=== PATIENT | male | born 1945 | race Caucasian/White ===

== ENCOUNTER 2016-09-02 15:49 | Emergency (ER) | payer OTHER ==
[~2016-09-02] VITALS: Ht 182.9 cm; Wt 110.0 kg
[~2016-09-02 15:49] MED LIST: CIPR500T4 PO; EQUATE ARTHRITIS PO; FISH1000 PO; GLYB5TAB3 PO; LANTUS2P SC; LISI-360 PO; MAGN420T PO; METF-324 PO; METO25 PO; MULT1TAB PO; NIAC500T5 PO; ST J81CH PO; TERA5CAP3 PO; ZOCO40TA PO
[2016-09-02 15:58] VITALS: BP 147/82; PULSE 70; RESP 16; TEMP 97.9; O2SAT 96
[2016-09-02] MEDS ORDERED: LISI10TA3 PO (16:18)
[2016-09-02] MEDS ORDERED: TERA5CAP3 PO (16:18)
[2016-09-02] MEDS ORDERED: METO25TA3 PO (16:18)
[2016-09-02] MEDS ORDERED: MULTTAB67 PO (16:18)
[2016-09-02] MEDS ORDERED: METF1000 PO (16:18)
[2016-09-02] MEDS ORDERED: ASPI81TA81 (16:18)
[2016-09-02] MEDS ORDERED: ZOCO40TA PO (16:18)
[2016-09-02] MEDS ORDERED: MAGN420T (16:18)
[2016-09-02] MEDS ORDERED: LANTUS2P (16:18)
[2016-09-02] MEDS ORDERED: GLYB5TAB3 PO (16:18)
--- NOTE | 2016-09-02 16:22 | PD ---
HPI Chief Complaint: Musculoskeletal Complaint Time Seen by Provider: 16:22 Travel History International Travel<30 days: No Contact w/Intl Traveler<30days: No Traveled to known affect area: No History of Present Illness HPI 71-year-old [id number] male with PMH of HTN, DM, and neurogenic bladder presents to the ED for evaluation of one week history of left-sided shoulder pain. Onset after lifting some packages overhead to store them in his shed. Worsened over the last 3 days. Described as throbbing, constant. Accompanied by occasional tingling of the arm that does not radiate into the fingers. He denies previous injury to the area. He denies numbness, weakness, limitations to range of motion of the arm. He denies cardiac history, palpitations, chest pain, diaphoresis, nausea, vomiting. Patient states that the pain keeps him from sleeping at night. He treated at home with heat packs with no improvement of symptoms. PFSH Past Medical History Arthritis: Yes (KNEES. ELBOWS) Autoimmune Disease: No Cancer: No Cardiovascular Problems: Yes High Cholesterol: Yes (CONTROLLED WITH MEDS) Chemotherapy: No Congestive Heart Failure: No Cerebrovascular Accident: No Diabetes: Yes (DIAG 1991) Patient Takes Glucophage: No Diminished Hearing: No Endocrine: Yes Gastrointestinal Disorders: No Genitourinary: Yes (neurogenic bladder, pt needs to do self-catherization) Hypertension: Yes (CONTROLLED WWITH MEDS) Immune Disorder: No Implanted Vascular Access Dvce: Yes Musculoskeletal: Yes Neurologic: Yes (neuropathy) Psychiatric: No Reproductive: No Respiratory: No Radiation Therapy: No Tetanus Vaccination: < 5 Years Influenza Vaccination: Yes Past Surgical History Abdominal Surgery: Yes (COLON RESECTION) Cardiac Surgery: No Eye Surgery: Yes (RIGHT CATARACT) Genitourinary Surgery: No Joint Replacement: Yes (RIGHT KNEE) Oral Surgery: Yes Other Surgery: Yes Social History Alcohol Use: Yes (3 TO 4 BEERS, TWICE WEEKLY) Tobacco Use: No Substance Use: No Allergies-Medications (Allergen,Severity, Reaction): Coded Allergies: No Known Allergies (Unverified , 09/02/16) Reported Meds & Prescriptions Reported Meds & Active Scripts Active Lortab (Hydrocodone-Acetaminophen) 5-325 Mg Tab 1 Tab PO HS PRN Naprosyn (Naproxen) 500 Mg Tab 500 Mg PO BID Reported Terazosin (Terazosin HCl) 5 Mg Cap 5 Mg PO HS Zocor (Simvastatin) 40 Mg Tab 40 Mg PO DAILY Multiple Vitamin 1 Tab 1 Tab PO DAILY Metoprolol Tartrate 25 Mg Tab 25 Mg PO BID Metformin (Metformin HCl) 1,000 Mg Tab 1,000 Mg PO BIDPC With meals Magnesium Oxide 420 Mg Tab Lisinopril 10 Mg Tab 10 Mg PO DAILY Lantus Inj (Insulin Glargine) 100 Unit/Ml Inj 30 Aspir-81 (Aspirin) 81 Mg Tabdr Glyburide 5 Mg Tab 10 Mg PO BID Take with meals at the same time each day Review of Systems Except as stated in HPI: all other systems reviewed are Neg Physical Exam Narrative GENERAL: Well-nourished, well-developed pleasant white male in no acute distress. SKIN: Warm and dry. No ecchymosis, abrasion or laceration of the left shoulder. HEAD: Normocephalic. EYES: No scleral icterus. No injection or drainage. NECK: Supple, trachea midline. No JVD or lymphadenopathy. CARDIOVASCULAR: Regular rate and rhythm without murmurs, gallops, or rubs. 2+ DP and radial pulses bilaterally. No tenderness to palpation over the precordium. RESPIRATORY: Breath sounds equal bilaterally. No accessory muscle use. GASTROINTESTINAL: Abdomen soft, non-tender, nondistended. MUSCULOSKELETAL: No cyanosis, or edema. FOCUSED LEFT UPPER EXTREMITY EXAM: 2+ radial pulse. Point tenderness over the posterior aspect of the left shoulder. Equal safety deposit boxes custodian strength in bilateral upper extremities. Patient is unable to abduct beyond 45. Resisted abduction elicits pain. Patient is weak to external rotation testing. BACK: Nontender without obvious deformity. No CVA tenderness. Data Data Last Documented VS Vital Signs Date Time Temp Pulse Resp B/P Pulse Ox O2 Delivery O2 Flow Rate FiO2 09/02/16 15:58 97.9 70 16 147/82 96 Orders Shoulder, Complete (>2vws) (09/02/16 16:44) Ketorolac Inj (Toradol Inj) (09/02/16 17:00) Support Splint (09/02/16 17:07) Sling Cradle Arm (09/02/16 ) MDM Medical Decision Making Medical Screen Exam Complete: Yes Emergency Medical Condition: Yes Differential Diagnosis Osteoarthritis versus rotator cuff injury versus fracture versus dislocation versus other Narrative Course 71-year-old [id number] male with PMH of HTN, DM, and neurogenic bladder presents to the ED for evaluation of one week history of left-sided shoulder pain. Onset after lifting some packages overhead to store them in his shed. Worsened over the last 3 days. Described as throbbing, constant. Accompanied by occasional tingling of the arm that does not radiate into the fingers. He denies previous injury to the area. He denies numbness, weakness, limitations to range of motion of the arm. He denies cardiac history, palpitations, chest pain, diaphoresis, nausea, vomiting. Patient states that the pain keeps him from sleeping at night. Vitals reviewed. Physical exam reveals a well- developed, pleasant white male in no acute distress. Left upper extremity exam reveals 2+ radial pulse, point tenderness over the posterior aspect of the left shoulder, equal safety deposit boxes custodian strength in bilateral upper extremities. Patient is unable to abduct beyond 45. Resisted abduction elicits pain. Patient is weak to external rotation testing. X-rays revealed mild degenerative changes in the acromioclavicular joint per radiology read. This is a rotator cuff tendinopathy with osteoarthritis. Patient was administered IM Toradol. He was prescribed short course of anti-inflammatory medications as well as Lortab 5 mg 5. The left arm was placed in a sling to encourage rest of the arm. He is instructed to take the medication as prescribed, follow up with his orthopedist. He was provided a copy of the radiology report to take home to [place]. He indicated understanding of the instructions. He is amenable to plan of care. He is stable and discharged home. Diagnosis Primary Impression: Left anterior shoulder pain Additional Impression: Tendinopathy of left rotator cuff Referrals: Orthopedist Primary Care Physician Patient Instructions: General Instructions, Rotator Cuff Injury (ED), Rotator Cuff Tendinitis (ED) Additional Instructions: Rest, ice, elevate the extremity. Apply ice no longer than 10-15 minutes per hour a 4-5 times a day. Naproxen twice a day as prescribed. Lortab 30 minutes before bedtime as needed for pain. Keep the left arm in a sling during daily activities. This will help you to remember to REST the arm. You may remove the sling for showering and at bedtime. Return to normal, gentle activity as tolerated. Follow up with orthopedist or your primary care provider upon return home. Return to the ED for any urgent or emergent medical condition. Med/Other Pt SpecificInfo: Prescription(s) given Scripts Hydrocodone-Acetaminophen (Lortab)5-325 Mg Tab1 Tab PO HS PRN (PAIN) #5 TAB Ref 0 Prov:Froilan Pisano MD 09/02/16 Naproxen (Naprosyn)500 Mg [id number] Mg PO BID #15 TAB Ref 0 Prov:Froilan Pisano MD 09/02/16 Disposition: 01 DISCHARGE HOME Condition: Stable Gladis Briceño Sep 02, 2016 16:22
[2016-09-02] MEDS ORDERED: KETOROLAC TROMETHAMINE 60 MG/2 ML (IM) VIAL IM ONE (17:00)
[2016-09-02] MEDS ORDERED: NAPR500 PO (17:00)
[2016-09-02] MEDS ORDERED: HYDR-3533 PO (17:01)
--- NOTE | 2016-09-02 17:09 | RADHPO ---
EXAM DATE/TIME: 09/02/2016 16:53 [facility] COMPARISON: No previous studies available for comparison. INDICATIONS : Patient states left shoulder pain, no known trauma to area. MEDICAL HISTORY : None. SURGICAL HISTORY : None. ENCOUNTER: Initial ACUITY: 1 week PAIN SCORE: 7/10 LOCATION: Left Shoulder FINDINGS: Multiple view examination of the left shoulder demonstrates no evidence of fracture or dislocation. The glenohumeral and acromioclavicular joints are maintained. There is normal range of motion betwee n internal and external rotation. Bony mineralization is normal. Mild degenerative changes of the a. c. joint CONCLUSION: Mild degenerative changes a.c. joint Duarte Barajas MD on September 02, 2016 at 17:07 Board Certified Radiologist. This report was verified electronically.
== END 2016-09-02 17:19 | disposition home or self-care (01) ==
LOC: PHEFT 15:49
DX: M25.512 Pain in left shoulder (principal); M77.9 Enthesopathy, unspecified; E78.00 Pure hypercholesterolemia, unspecified; E11.9 Type 2 diabetes mellitus without complications; I10 Essential (primary) hypertension; X50.9XXA Other and unspecified overexertion or strenuous movements or postures, initial encounter; Y93.89 Activity, other specified; Y92.008 Other place in unspecified non-institutional (private) residence as the place of occurrence of the external cause
CPT/HCPCS: 73030; 96372; 99283; J1885